=== PATIENT | male | born 1995 | race African-American/Black ===

== ENCOUNTER 2019-06-25 11:26 | Emergency (ER) | payer SELFPAY ==
[~2019-06-25] VITALS: Ht 177.8 cm; Wt 135.0 kg
[2019-06-25 12:00] VITALS: BP 149/63
--- NOTE | 2019-06-25 12:27 | PHYS DOC ---
Adult General Chief Complaint Chief Complaint: COUGH HPI HPI Patient is a 23 year old male who presents to the ED today complaining over nonproductive cough for 2 weeks. Patient denies any fever. He reports he was seen at [facility] on June 15, 2019 for the same cough, he states he had a negative chest x-ray, he was sent home with albuterol inhaler, Tessalon Perles and prednisone. He states they are not helping and he would like Tylenol 3/Tylenol with codeine or anything else to help with his cough. Review of Systems Review of Systems Constitutional: Denies fever or chills [] Eyes: Denies change in visual acuity, redness, or eye pain [] HENT: Denies nasal congestion or sore throat [] Respiratory: Reports cough, denies shortness of breath Cardiovascular: No additional information not addressed in HPI [] GI: Denies abdominal pain, nausea, vomiting, bloody stools or diarrhea [] : Denies dysuria or hematuria [] Musculoskeletal: Denies back pain or joint pain [] Integument: Denies rash or skin lesions [] Neurologic: Denies headache, focal weakness or sensory changes [] All other systems were reviewed and found to be within normal limits, except as documented in this note. Physical Exam Physical Exam Constitutional: Well developed, well nourished, no acute distress, non-toxic appearance. [] HENT: Normocephalic, atraumatic, bilateral external ears normal, oropharynx moist, no oral exudates, nose normal. [] Eyes: PERRLA, EOMI, conjunctiva normal, no discharge. [] Neck: Normal range of motion, no tenderness, supple, no stridor. [] Cardiovascular:Heart rate regular rhythm, no murmur [] Lungs & Thorax: Bilateral breath sounds clear to auscultation [] Abdomen: Bowel sounds normal, soft, no tenderness, no masses, no pulsatile masses. [] Skin: Warm, dry, no erythema, no rash. [] Back: No tenderness, no CVA tenderness. [] Extremities: No tenderness, no cyanosis, no clubbing, ROM intact, no edema. [] Neurologic: Alert and oriented X 3, normal motor function, normal sensory function, no focal deficits noted. [] Psychologic: Affect normal, judgement normal, mood normal. [] EKG EKG [] Radiology/Procedures Radiology/Procedures [] Course & Med Decision Making Course & Med Decision Making Pertinent Labs and Imaging studies reviewed. (See chart for details) This is a 23-year-old male patient presenting to the ED today complaining of a cough that began 2 weeks ago. Patient was seen at [facility] on June 15, 2019 for the same complaint, he had a chest x-ray which she reports was negative, he was given a prescription for albuterol inhaler prednisone T josep Ferrer. He states they're not helping and would like something else. He mentions Tylenol 3/Tylenol with Codeine. He does not want any further testing. Informed patient the medicines he got from [facility]. are adequate managing his symptoms. Requested him to take [id number] remedies as well. Instructed to follow-up with the PCP. He requested a note for work which was provided Dragon Disclaimer Dragon Disclaimer This electronic medical record was generated, in whole or in part, using a voice recognition dictation system. Departure Departure Impression: Primary Impression: Cough Disposition: 01 HOME, SELF-CARE Condition: STABLE Referrals: NO PCP (PCP) follow up with your doctor in 1-2 weeks Patient Instructions: Cough, Adult, [id number] Additional Instructions: You were evaluated in the emergency room for a cough. Please continue taking the medicines you received from [facility]. You can also consider [id number] medications like Delsym, Zyrtec. Please follow-up with your own doctor in 1-2 weeks BACILIO MORRIS APRN Jun 25, 2019 12:27
== END 2019-06-25 13:05 | disposition home or self-care (01) ==
LOC: ER 11:26
DX: R05 Cough (principal)
CPT/HCPCS: 99281